=== PATIENT | female | born 1980 | race American Indian/Alaskan Native ===

== ENCOUNTER 2019-10-05 17:29 | Emergency (ER) | payer MEDICAID ==
[2019-10-05] MEDS ORDERED: Ondansetron 4 MG Tab.DIS PO ONE (18:32)
[2019-10-05] MEDS ORDERED: HYDROmorphone 1 MG/ML Syringe IM ONE (18:32)
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
--- NOTE | 2019-10-05 19:26 | CT ---
CT facial bones Technique: Multiple axial sections were obtained through the facial bones. Reconstructed coronal and sagittal images were reviewed. Findings: Soft tissue swelling is seen within the right periorbital region. Right and left globes are symmetric in size. No retrobulbar are abnormality is seen. Extraocular muscles are symmetric. Several dental erosions are seen which are felt compatible with dental caries. Paranasal sinuses are clear. Visualized mastoid sinuses are clear. Small soft tissue defect compatible with small skin laceration is seen to the lateral left orbital region. No acute facial bone fracture is appreciated. Impression: 1. Soft tissue swelling around the right periorbital region. 2. Small skin laceration to the lateral left orbital region. 3. Dental caries. 4. No acute bony abnormality is seen on CT study of the facial bones. Diagnostic code #2 This report was dictated in [place] Standard Time
--- NOTE | 2019-10-05 19:27 | CT ---
Head CT Technique: Multiple axial sections through the brain were obtained. Intravenous contrast was not utilized. Comparison: No prior intracranial imaging is available. Findings: Ventricles along with basal cisterns and sulci over the convexities appear within normal limits for the patient's age. No abnormal parenchymal densities are seen. No evidence of intracranial hemorrhage. No midline shift or mass effect is seen. Soft tissue swelling is noted around the right periorbital region. Bone window settings were reviewed which shows no acute calvarial abnormality. Mastoid sinuses show nothing acute. Visualized paranasal sinuses show nothing acute. Note is made of an old defect within the left medial orbital wall compatible with old fracture. Impression: 1. Old fracture within the medial left orbital wall. 2. Soft tissue swelling within the right periorbital region. 3. No acute intracranial abnormality is appreciated. No acute skull fracture is seen. Diagnostic code #2 This report was dictated in [place] Standard Time
== END 2019-10-05 20:29 | disposition home or self-care (01) ==
LOC: JD.ED 17:29
DX: S02.401A Maxillary fracture, unspecified side, initial encounter for closed fracture (principal); S00.11XA Contusion of right eyelid and periocular area, initial encounter; F07.81 Postconcussional syndrome; S60.221A Contusion of right hand, initial encounter; S60.222A Contusion of left hand, initial encounter; S80.11XA Contusion of right lower leg, initial encounter; E11.9 Type 2 diabetes mellitus without complications; F17.210 Nicotine dependence, cigarettes, uncomplicated; Z79.899 Other long term (current) drug therapy; Y04.0XXA Assault by unarmed brawl or fight, initial encounter
CPT/HCPCS: 70450; 70486; 96372; 99283; A9270; J1170; 99284

== ENCOUNTER 2019-10-06 12:42 | Emergency (ER) | payer MEDICAID ==
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
--- NOTE | 2019-10-06 13:41 | CR ---
Chest: Portable view of the chest was obtained. Comparison: No prior chest imaging. Heart size and mediastinum are within normal limits for portable technique. Lungs are clear with no acute parenchymal change. Bony structures are grossly intact. Impression: 1. Nothing acute is seen on portable chest x-ray. Diagnostic code #1 This report was dictated in [place] Standard Time
== END 2019-10-06 13:43 | disposition home or self-care (01) ==
LOC: JD.ED 12:42
DX: J02.9 Acute pharyngitis, unspecified (principal); E11.9 Type 2 diabetes mellitus without complications; Z79.899 Other long term (current) drug therapy
CPT/HCPCS: 71045; 71045-26; 99282; 99283-25

== ENCOUNTER 2019-11-01 08:26 | Emergency (ER) | payer MEDICAID ==
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
[2019-11-01] MEDS ORDERED: Barium Sulfate 98% Powder for Susp 340 GM Bottle PO ONE (10:27)
[2019-11-01] MEDS ORDERED: Citric Acid/Simethicone/Sodium Bicarbonate Granules 4 GM Packet PO ONE (10:27)
--- NOTE | 2019-11-01 12:20 | CR ---
Esophagram Patient had a difficult time of swallowing due to complaints of nausea. No aspiration was observed. There is no stricture or mass effect within the esophagus. Several swallows of barium that could be taken show no obstruction with contrast passing into the stomach. Impression: 1. Limited esophagram study due to nausea. 2. No gross abnormality is appreciated. Diagnostic code #2 This report was dictated in [place] Standard Time
== END 2019-11-01 13:50 | disposition home or self-care (01) ==
LOC: JD.ED 08:26
DX: K21.9 Gastro-esophageal reflux disease without esophagitis (principal); E11.9 Type 2 diabetes mellitus without complications
CPT/HCPCS: 74220; 74220-26; 99284-25

== ENCOUNTER 2019-11-11 12:43 | Emergency (ER) | payer MEDICAID, OTHER ==
--- NOTE | 2019-11-11 13:12 | EDM.PDOC ---
ED HPI GENERAL MEDICAL PROBLEM - General Chief Complaint: Skin Complaint Stated Complaint: ABSCESS ON INSIDE OF THIGH Time Seen by Provider: 11/11/19 13:10 Source of Information: Reports: Patient, RN Notes Reviewed - History of Present Illness INITIAL COMMENTS - FREE TEXT/NARRATIVE: 39 year old female comes in with severe swelling, pain of the R labia. This started Yesterday and did get much worse during the night pain and swelling continues today hard and painful to walk. She states she has had a very small cyst of the right labia in the past but it has never gotten enlarged or painful like this. She has had previous cysts on her chest that have needed drainage. No fever or chills. Perineal Area Pain Score (Numeric/FACES): 9 - Related Data Allergies Allergy/AdvReac Type Severity Reaction Status Date / Time No Known Allergies Allergy Verified 11/01/19 08:36 Home Meds: Home Meds Acetaminophen/HYDROcodone [[place] 325-5 MG] 1 tab PO Q6H PRN #14 tablet 11/11/19 [Rx] Doxycycline [Vibramycin] 100 mg PO BID #20 tab 11/11/19 [Rx] Past Medical History - Past Health History Medical/Surgical History: Denies Medical/Surgical History Endocrine/Metabolic History: Reports: Diabetes, Type II Other Endocrine/Metabolic History: not on medication per pt's request - Past Surgical History GI Surgical History: Reports: Appendectomy, Cholecystectomy Social & Family History - Tobacco Use Smoking Status *Q: Never Smoker - Caffeine Use Caffeine Use: Reports: Coffee, Soda, Tea - Recreational Drug Use Recreational Drug Use: No ED ROS GENERAL - Review of Systems Review Of Systems: See Below Constitutional: Denies: Fever, Chills HEENT: Reports: No Symptoms Respiratory: Denies: Shortness of Breath Cardiovascular: Denies: Chest Pain GI/Abdominal: Denies: Abdominal Pain, Nausea, Vomiting : Reports: Other (Large area of swelling and pain right labia) Musculoskeletal: Reports: No Symptoms Skin: Reports: Erythema (Right labia) ED EXAM, SKIN/RASH Exam: See Below General Appearance: Mild Distress Throat/Mouth: Normal Inspection Head: Atraumatic Neck: Supple Respiratory/Chest: No Respiratory Distress, Lungs Clear Cardiovascular: Regular Rate, Rhythm (Large area of swelling R labia, erythematous, tender, area of increased swelling on top of the generalized swelling lower medial aspect of labia) Skin: Other (Skin otherwise clear at this time) ED SKIN PROCEDURES - Laceration/Wound Repair Right Vulvar Local Anesthesia - Lidocaine (Xylocaine): 1% Plain Skin Prep: Providone-Iodine (Betadine) Exploration/Debridement/Repair: Other (small incission made R outer labia, ) Course - Vital Signs Last Recorded V/S: Last Vital Signs Temp 98.3 F 11/11/19 13:00 Pulse 79 11/11/19 13:00 Resp 20 11/11/19 13:00 BP 110/69 11/11/19 13:00 Pulse Ox 100 11/11/19 13:00 - Orders/Labs/Meds Orders: Active Orders 24 hr Category Date Time Status Peripheral IV Care [RC] . DIRECTED Care 11/11/19 13:23 Active CULTURE WOUND [RM] Stat Lab 11/11/19 14:05 Received Peripheral IV Insertion Adult [OM.PC] Stat Oth 11/11/19 13:23 Ordered Meds: Medications Discontinued Medications Generic Name Dose Route Start Last Admin Trade Name Orly PRN Reason Stop Dose Admin Doxycycline Hyclate 200 mg 11/11/19 14:20 11/11/19 14:32 Vibramycin PO 11/11/19 14:21 200 mg ONETIME ONE Administration Fentanyl 100 mcg 11/11/19 13:23 11/11/19 13:35 Sublimaze IVPUSH 11/11/19 13:24 100 mcg ONETIME ONE Administration Fentanyl Confirm 11/11/19 13:55 11/11/19 14:25 Sublimaze Administered 11/11/19 13:56 Not Given Dose 100 mcg .ROUTE .STK-MED ONE Fentanyl 100 mcg 11/11/19 14:00 11/11/19 14:00 Sublimaze IVPUSH 11/11/19 14:01 100 mcg ONETIME ONE Administration Lidocaine HCl 50 ml 11/11/19 13:36 11/11/19 13:43 Xylocaine 1% INJECT 11/11/19 13:37 50 ml ONETIME ONE Administration Midazolam HCl 2 mg 11/11/19 13:23 11/11/19 13:34 Versed 1 Mg/Ml IVPUSH 11/11/19 13:24 2 mg ONETIME ONE Administration Sodium Chloride 10 ml 11/11/19 13:23 11/11/19 13:34 Saline Flush FLUSH 10 ml ASDIRECTED PRN Administration Keep Vein Open - Re-Assessments/Exams Free Text/Narrative Re-Assessment/Exam: 11/11/19 15:07 small incission made R outer labia, small amt of fluid but no visible pus, 2nd small incission made area of localized swelling on top of the diffuse swelling R labia and with that there was some white pus that did drain, not a large enough cavity to pack, cultures obtained. 11/11/19 16:12. We did give doxycycline 200 mg orally while here in the ED and will have her continue 100 mg twice a day for 10 days. Discharge instructions as documented. Departure - Departure Time of Disposition: 14:23 Disposition: Home, Self-Care 01 Condition: Fair Clinical Impression: Abscess - Discharge Information Prescriptions: Acetaminophen/HYDROcodone [G[place]hen 325-5 MG] 1 tab PO Q6H PRN #14 tablet PRN Reason: Pain Doxycycline [Vibramycin] 100 mg PO BID #20 tab Instructions: Skin Abscess, [id number] Referrals: PCP,None [Primary Care Provider] - Forms: ED Department Discharge, ED Return to Work/School Form Additional Instructions: Warm compresses every 2-3 hours while awake the remainder of today and for the next 2 or 3 days until this is getting a lot better. You've been given doxycycline 200 mg by mouth while here in the ED. Tylenol for mild to moderate discomfort or hydrocodone if needed for more severe pain. Take Tylenol and hydrocodone at the same time. Prescriptions for these meds have been sent electronic to [facility] at the [employer]. Your next dose of the doxycycline will be this evening and continue that 100 mg twice daily for 10 days or until gone. See your regular medical provider or follow up [facility] clinic preferrably Wednesday, Wednesday at the latest. Call for appointment. Sepsis Event Note - Evaluation Sepsis Screening Result: No Definite Risk - Focused Exam Vital Signs: Vital Signs Temp Pulse Resp BP Pulse Ox 11/11/19 13:00 98.3 F 79 20 110/69 100 Date Exam was Performed: 11/11/19 Time Exam was Performed: 16:11 - My Orders Last 24 Hours: My Active Orders 11/11/19 13:23 Peripheral IV Care [RC] . DIRECTED Peripheral IV Insertion Adult [OM.PC] Stat 11/11/19 14:05 CULTURE WOUND [RM] Stat - Assessment/Plan Last 24 Hours: My Active Orders 11/11/19 13:23 Peripheral IV Care [RC] . DIRECTED Peripheral IV Insertion Adult [OM.PC] Stat 11/11/19 14:05 CULTURE WOUND [RM] Stat
[2019-11-11] MEDS ORDERED: Sodium Chloride 0.9% 10 ML Syringe FLUSH PRN (13:23)
[2019-11-11] MEDS ORDERED: fentaNYL 100 MCG/2 ML SDV IVPUSH ONE ×2 (13:23→14:00)
[2019-11-11] MEDS ORDERED: Midazolam 1 MG/ML 2 ML SDV IVPUSH ONE (13:23)
[2019-11-11] MEDS ORDERED: Lidocaine 1% 50 ML MDV INJECT ONE (13:36)
[2019-11-11] MEDS ORDERED: fentaNYL 100 MCG/2 ML SDV ONE (13:55)
[2019-11-11] MEDS ORDERED: Doxycycline 100 MG Cap PO ONE (14:20)
== END 2019-11-11 14:45 | disposition home or self-care (01) ==
LOC: JD.ED 12:43
DX: N76.4 Abscess of vulva (principal); E11.9 Type 2 diabetes mellitus without complications
CPT/HCPCS: 56405; 87075; 87205; 96374; 96375; 99283; A9270; J2001; J2250; J3010; 10060; 87076; 87077; 87181; 87184

== ENCOUNTER 2022-04-20 10:33 | Emergency (ER) | payer SELFPAY | END 2022-04-20 12:00 | LOC: JD.ED 10:33 | DX: Z53.21 Procedure and treatment not carried out due to patient leaving prior to being seen by health care provider (principal) ==

== ENCOUNTER 2023-02-01 16:47 | Emergency (ER) | payer OTHER ==
[2023-02-01] MEDS ORDERED: Sodium Chloride 0.9% 10 ML Syringe FLUSH PRN (17:37)
[2023-02-01] MEDS ORDERED: Ondansetron 4 MG/2 ML SDV IVPUSH ONE (17:37)
[2023-02-01] MEDS ORDERED: HYDROmorphone 0.5 MG/0.5 ML Syringe IVPUSH ONE (17:40)
[2023-02-01] MEDS ORDERED: Sodium Chloride 0.9% 1,000 ML IV SCH (17:45)
[2023-02-01] MEDS ORDERED: cefTRIAXone 1 GM in Sodium Chloride 0.9% 100 ML IV ONE (19:57)
[2023-02-01] MEDS ORDERED: Codeine/Promethazine 10-6.25 MG/5 ML Syrup 5 ML UD Cup PO ONE (19:58)
[2023-02-01] MEDS ORDERED: Acetaminophen 325 MG Tab PO ONE (20:53)
== END 2023-02-01 21:16 | disposition home or self-care (01) ==
LOC: JD.ED 16:47
DX: J10.1 Influenza due to other identified influenza virus with other respiratory manifestations (principal); N30.00 Acute cystitis without hematuria; E11.9 Type 2 diabetes mellitus without complications
CPT/HCPCS: 36415; 71045; 80053; 81001; 83605; 83690; 84484; 85025; 86140; 93005; 96361; 96365; 96375; 99285; A9270; J0696; J1170; J2405; J3490; J7030

== ENCOUNTER 2023-02-11 12:08 | Emergency (ER) | payer OTHER ==
[2023-02-11] MEDS ORDERED: Sodium Chloride 0.9% 10 ML Syringe FLUSH PRN (12:36)
[2023-02-11] MEDS ORDERED: Prochlorperazine 10 MG/2 ML SDV IVPUSH ONE (13:04)
[2023-02-11 13:17] LABS: BASOPHILS ABSOLUTE AUTO 0.03 K/mm3 (0.01-0.08); BASOPHILS PERCENT AUTO 0.1 % (0.1-1.2); EOSINOPHILS ABSOLUTE AUTO 0.01 K/mm3 (0.04-0.36); EOSINOPHILS PERCENT AUTO 0 (0.7-5.8); HEMATOCRIT 41.5 % (34.1-44.9); HEMOGLOBIN 13.5 gm/dl (11.2-15.7); IMMATURE GRAN ABSOLUTE AUTO 0.06 K/mm3 (0.00-0.10); IMMATURE GRAN PERCENT AUTO 0.3 % (<=1.0); LYMPHOCYTES ABSOLUTE AUTO 1.87 K/mm3 (1.18-3.74); LYMPHOCYTES PERCENT AUTO 8.7 % (19.3-51.7); MEAN CORPUSCULAR HEMOGLOBIN 25.4 pg (25.6-32.2); MEAN CORPUSCULAR HGB CONC 32.5 g/dl (32.2-35.5); MEAN PLATELET VOLUME 10.4 fl (9.4-12.3); MONOCYTES ABSOLUTE AUTO 0.97 K/mm3 (0.24-0.36); MONOCYTES PERCENT AUTO 4.5 % (4.7-12.5); NEUTROPHILS ABSOLUTE AUTO 18.55 K/mm3 (1.56-6.13); NEUTROPHILS PERCENT AUTO 86.4 % (34.0-71.1); RED BLOOD CELL COUNT 5.32 M/mm3 (3.98-5.22); WHITE BLOOD CELL COUNT,WBC 21.49 K/mm3 (3.98-10.04)
[2023-02-11 13:19] LABS: PLATELET COUNT,PLT 453 K/mm3 (182-369)
[2023-02-11] MEDS ORDERED: fentaNYL 100 MCG/2 ML SDV IVPUSH ONE (13:35)
[2023-02-11 13:36] LABS: A/G RATIO 0.5 (1-2); ALBUMIN 2.8 g/dl (3.4-5.0); ANION GAP 13.6 (5-15); BUN/CREATININE RATIO 6.3 (14-18); CREATININE 0.8 mg/dL (0.55-1.02); EST CRCL DRUG DOSING (CG) 95.74 mL/min; POTASSIUM,K 3.6 mEq/L (3.5-5.1); PROTEIN TOTAL,TP 8.6 g/dl (6.4-8.2)
[2023-02-11] MEDS ORDERED: Iopamidol 612 MG/ML 50 ML SDV IVPUSH ONE ×2 (13:46→13:47)
[2023-02-11] MEDS ORDERED: cefTRIAXone 2 GM in Sodium Chloride 0.9% 100 ML IV ONE (14:31)
[2023-02-11] MEDS ORDERED: Azithromycin 1,000 MG in Sodium Chloride 0.9% 500 ML IV ONE (14:32)
[2023-02-11] MEDS ORDERED: Acetaminophen 325 MG Tab PO ONE (15:03)
[2023-02-11] MEDS ORDERED: Ketorolac 30 MG/ML SDV IVPUSH ONE (15:03)
== END 2023-02-11 18:05 | disposition home or self-care (01) ==
LOC: JD.ED 12:08
DX: J18.9 Pneumonia, unspecified organism (principal); E11.9 Type 2 diabetes mellitus without complications; Z98.890 Other specified postprocedural states
CPT/HCPCS: 36415; 74177; 74177-26; 80053; 83690; 85025; 96365; 96366; 96367; 96375; 99284-25; A9270-GY; J0456; J0696; J0780; J1885; J3010; J3490; J7040; Q9967

== ENCOUNTER 2023-07-15 14:09 | Emergency (ER) | payer OTHER ==
[2023-07-15] MEDS ORDERED: Sodium Chloride 0.9% 10 ML Syringe FLUSH PRN (14:25)
[2023-07-15 15:13] LABS: BASOPHILS ABSOLUTE AUTO 0.1 K/mm3 (0.0-0.2); BASOPHILS PERCENT AUTO 0.6 % (0.0-1.0); EOSINOPHILS ABSOLUTE AUTO 0.2 K/mm3 (0.0-0.4); EOSINOPHILS PERCENT AUTO 2.2 % (0.0-6.0); HEMATOCRIT 41.6 % (37.0-47.0); HEMOGLOBIN 13.9 gm/dl (12.0-16.0); IMMATURE GRAN ABSOLUTE AUTO 0.02 K/mm3 (0.00-0.05); IMMATURE GRAN PERCENT AUTO 0.3 % (0.0-0.4); LYMPHOCYTES PERCENT AUTO 39.5 % (24.0-44.0); MEAN CORPUSCULAR HEMOGLOBIN 26.5 pg (28.0-32.0); MEAN CORPUSCULAR HGB CONC 33.4 g/dl (32.0-36.0); MEAN CORPUSCULAR VOLUME 79.4 fl (83.0-99.0); MEAN PLATELET VOLUME 9.8 fl (9.4-12.3); MONOCYTES ABSOLUTE AUTO 0.4 K/mm3 (0.0-0.8); MONOCYTES PERCENT AUTO 5.3 % (0.0-8.0); NEUTROPHILS PERCENT AUTO 52.1 % (41.0-71.0); PLATELET COUNT,PLT 333 K/mm3 (150-400); RED BLOOD CELL COUNT 5.24 M/mm3 (4.10-5.30)
[2023-07-15 15:46] LABS: A/G RATIO 0.7 (1-2); ALBUMIN 3.3 g/dl (3.4-5.0); ALKALINE PHOSPHATASE 102 U/L (46-116); ANION GAP 11.8 (5-15); ASPARTATE AMNIOTRANSFERASE,AST 9 U/L (15-37); BILIRUBIN TOTAL 0.4 mg/dL (0.2-1.0); BLOOD UREA NITROGEN,BUN 10 mg/dL (7-18); BUN/CREATININE RATIO 16.7 (14-18); CALCIUM 8.7 mg/dL (8.5-10.1); CARBON DIOXIDE,CO2 27 mEq/L (21-32); CHLORIDE,CL 100 mEq/L (98-107); CREATININE 0.6 mg/dL (0.55-1.02); EST CRCL DRUG DOSING (CG) 126.35 mL/min; ESTIMATED GFR 114 mL/min (>60); GLUCOSE RANDOM 193 mg/dL (70-99); MAGNESIUM 1.7 mg/dL (1.8-2.4); POTASSIUM,K 3.8 mEq/L (3.5-5.1); PROTEIN TOTAL,TP 8.3 g/dl (6.4-8.2); SODIUM,NA 135 mEq/L (136-145)
[2023-07-15 15:47] LABS: TROPONIN I HIGH SENSITIVITY < 4 pg/mL (<=51)
[2023-07-15 15:59] LABS: ALANINE AMINOTRANSFERASE,ALT 14 U/L (14-59)
== END 2023-07-15 16:55 | disposition home or self-care (01) ==
LOC: JD.ED 14:09
DX: R07.89 Other chest pain (principal); E11.9 Type 2 diabetes mellitus without complications; F17.210 Nicotine dependence, cigarettes, uncomplicated; Z88.5 Allergy status to narcotic agent
CPT/HCPCS: 36415; 71045; 71045-26; 80053; 83735; 83880; 84484; 85025; 93005; 93010; 99282; 99285